=== PATIENT | male | born 1950 | race Caucasian/White ===

== ENCOUNTER 2024-02-19 16:15 | Emergency (ER) | payer MEDICARE, SELFPAY ==
[2024-02-19 16:26] VITALS: BP 199/116; PULSE 101; RESP 20; TEMP 37.3; O2SAT 97
--- NOTE | 2024-02-19 16:38 | ED.UPPEXIN ---
HPI - Extremity Injury (Upper) General Chief Complaint: Extremity Injury, Upper Stated Complaint: Hands and Arm Injury Time Seen by Provider: 02/19/24 16:35 Source: patient and RN notes reviewed Mode of arrival: ambulatory Limitations: no limitations History of Present Illness HPI narrative: Patient presents today with skin tears to his bilateral hands and right forearm. Approximately 1 hour prior to arrival, patient tripped and fell while using a leaf lower outside his home. He is not up-to-date on his tetanus vaccine. Related Data Home Medications Medication Instructions Recorded Confirmed omeprazole 10 mg capsule,delayed 10 mg PO DAILY 02/19/24 02/19/24 release Allergies Allergy/AdvReac Type Severity Reaction Status Date / Time No Known Allergies Allergy Verified 02/19/24 16:26 Review of Systems Review of Systems: CONSTITUTIONAL: Denies body aches, fever, chills, or sweats. EYES: Denies visual changes, redness, or discharge. ENT: Denies rhinorrhea, congestion, sore throat, or otalgia. CARDIOVASCULAR: Denies chest pain, palpitations, or edema. RESPIRATORY: Denies cough or dyspnea. GASTROINTESTINAL: Denies abdominal pain, nausea, vomiting, or diarrhea. GENITOURINARY: Denies dysuria or hematuria. SKIN: + skin tears MUSCULOSKELETAL: Denies back pain, joint pain, or myalgia. NEUROLOGIC: Denies headache, numbness, tingling, or weakness. PSYCH: Denies depression or anxiety. [facility] Past Medical History Medical History (Updated 02/19/24 @ 17:07 by Opal Muir, [facility], ) Gastric ulcer Comments At time of signature, I have reviewed and agree with nursing past medical, surgical, social and family history unless otherwise noted. Please see nursing chart for further information. There is no relevant family history pertinent to the presenting complaint Exam Narrative: GENERAL: Well-appearing, well-nourished, and in no acute distress. HEAD: Normocephalic, atraumatic. EYES: EOMI. No redness or drainage. Conjunctivae normal. ENT: Mucous membranes pink and moist. NECK: Normal AROM. CHEST: No respiratory distress. EXTREMITIES: Patient has no bony tenderness to the wrists, hands, forearms, elbows, shoulders with full range of motion. SKIN: right hand: 4 cm superficial skin tear to the dorsum of the hand at the base of the 1st and 2nd fingers. Right forearm: 6 cm superficial flap skin tear. Left hand 6 cm superficial jagged flap skin tear to the dorsum of the hand at the base of the 1st and 2nd fingers. NEURO: No focal deficits. Alert and oriented x3. Gait steady. PSYCH: Normal affect. No signs of depression or anxiety. Course Course Level of Care: Express Care Visit Vital Signs Vital signs: Vital Signs Temperature 99.2 F 02/19/24 16:26 Pulse Rate 101 H 02/19/24 16:26 Respiratory Rate 20 02/19/24 16:26 Blood Pressure 199/116 H 02/19/24 16:26 Pulse Oximetry 97 02/19/24 16:26 Oxygen Delivery Room Air 02/19/24 16:26 Temperature 99.2 F 02/19/24 16:26 Pulse Rate 101 H 02/19/24 16:26 Respiratory Rate 20 02/19/24 16:26 Blood Pressure 182/94 H 02/19/24 17:13 Pulse Oximetry 97 02/19/24 16:26 Oxygen Delivery Room Air 02/19/24 16:26 Reviewed Procedures Other Procedure Procedure 1: Other Procedure: All skin tears cleansed with wound cleanser and saline. Skin edges approximated and repaired with Steri-Strips. Skin tears on the hands repaired skin glue. MDM - Extremity Injury (Upper) Differential Diagnosis Differential diagnosis: Likely other (skin tear, laceration, skin avulsion, sprain, fracture, ) Critical Care Time Critical Care Time Critical Care Time: No Discharge Plan Discharge Clinical Impression: Skin tear of right hand without complication Qualifiers: Encounter type: initial encounter Qualified Code(s): S61.411A - Laceration without foreign body of right hand, initial encounter Skin tear of left hand without complica
[2024-02-19] MEDS: TETANUS,DIPHTHERIA,AC PERTUSSIS ADULT (0.5 ML) BOOSTRIX IM (16:50)
[2024-02-19 17:13] VITALS: BP 182/94
== END 2024-02-19 17:12 | disposition home or self-care (01) ==
PROVIDERS: Emergency Provider Nurse Practitioner
DX: S61.412A Laceration without foreign body of left hand, initial encounter (principal); S61.411A Laceration without foreign body of right hand, initial encounter; S51.811A Laceration without foreign body of right forearm, initial encounter; W01.0XXA Fall on same level from slipping, tripping and stumbling without subsequent striking against object, initial encounter; Z23 Encounter for immunization
CPT/HCPCS: 12004; 90471; 90715; 99212; G0463